=== PATIENT | male | born 1985 | race Caucasian/White ===

== ENCOUNTER 2023-02-13 01:55 | Emergency (ER) | payer OTHER ==
[~2023-02-13] VITALS: Ht 170.2 cm; Wt 88.5 kg
--- NOTE | 2023-02-13 01:55 | NUR ---
PT KRISTI AYON, PREBOOK. TAKEN TO CHAIR
[2023-02-13 01:58] VITALS: BP 109/90
--- NOTE | 2023-02-13 01:58 | NUR ---
Dr. Quinonez examining patient.
[2023-02-13 02:30] VITALS: BP 109/90
== END 2023-02-13 02:30 ==
LOC: MED 01:55
DX: Z02.89 Encounter for other administrative examinations (principal); Z91.013 Allergy to seafood; V89.2XXA Person injured in unspecified motor-vehicle accident, traffic, initial encounter; Y93.89 Activity, other specified; Y92.410 Unspecified street and highway as the place of occurrence of the external cause; Y99.8 Other external cause status
CPT/HCPCS: 99283